=== PATIENT | female | born 1975 | race Caucasian/White ===

== ENCOUNTER 2016-06-03 16:44 | Emergency (ER) | payer MEDICAID ==
[~2016-06-03] VITALS: Ht 157.5 cm; Wt 90.9 kg
[~2016-06-03 16:44] MED LIST: ABILIFY 10MG TA10 MG PO; ABILIFY20 MG PO; BENADRYL25 M2 PO; BENADRYL50 MG PO; BENZTROPINE1 MG PO; BUSPIRONE HCL7.5 MG PO; CELEXA40 MG PO; CEPHALEXIN500 M1 PO; CHANTIX 1MG1 MG PO; CLARITIN 1010 MG/TAB PO; CLEOCIN HC150 MG/CAP PO; COGENTIN .0.5 MG/TAB PO; COLACE 100100 MG/CAP PO; DEPAKOTE ER 50500 MG PO; DESYREL 50MG50 MG PO; DESYREL DIVIDO150 M1 PO; DIFLUCAN150 MG PO; FETZIMA40 PO; FLEXERIL 1010 MG/TAB PO; GEODON40 MG PO; GEODON80 MG PO; HYDROXYZINE50 MG PO; INDERAL 10MG10 MG PO; KLONOPIN 0.5MG0.5 MG PO; KLONOPIN0.5 MG PO; LAMICTAL 100MG100 MG PO; LATUDA20 MG PO; LATUDA40 MG PO; LEVAQUIN 5500 MG/TA1 PO; LIPITOR 10MG10 MG PO; LORTAB 5/500 501 TAB PO; MACROBID 1100 MG/CAP PO; MEDROL 4MG DOSPA4 MG PO; MINIPRESS2 MG PO; MIRTAZAPINE7.5 MG PO; NICODERM C21 MG/PATC TOP; NORCO 325 MG-51 TAB PO; OMNICEF 300MG300 MG PO; PERCOCET 325 MG1 TA2 PO; PRAZOSIN PO; PREMARIN 0.60.625 M1 PO; PRIL40 PO; PRILOSEC 20MG20 MG PO; PRISTIQ100 MG PO; PRISTIQ50 M1 PO; PROAIR HFA0.09 MG/AC IH; PROMETHAZINE V473 M2 PO; PROZAC 20MG20 MG PO; PROZAC40 MG PO; PYRIDIUM200 M1 PO; SEROQUEL XR150 MG PO; SEROQUEL XR200 MG PO; SEROQUEL XR50 MG PO; SEROQUEL50 MG PO; TENORMIN 2525 MG/TAB PO; TRAZADONE HYDR100 MG PO; ULTRAM 50MG TAB50 MG PO; VALIUM 5MG T5 MG/TAB PO; VENTOLIN0.09 MG IH; VESICARE10 MG PO; VISTARIL 2525 MG/CAP PO; VISTARIL50 MG PO; XANAX 0.5MG0.5 MG PO; ZOCOR 20MG20 MG PO; ZOFRAN ODT4 MG PO; ZYRTEC ALLERGY10 MG PO
[2016-06-03 16:53] VITALS: BP 135/95; TEMP 97.2
[2016-06-03] MEDS ORDERED: ZOVIRAX800 MG PO (18:13)
[2016-06-03 18:20] VITALS: PULSE 74
== END 2016-06-03 18:20 | disposition home or self-care (01) ==
LOC: COL.ER 16:44
DX: B02.9 Zoster without complications (principal); I10 Essential (primary) hypertension

== ENCOUNTER 2016-07-14 20:55 | Emergency (ER) | payer MEDICAID ==
[~2016-07-14] VITALS: Ht 157.5 cm; Wt 90.9 kg
[~2016-07-14 20:55] MED LIST changes: +ZOVIRAX800 MG PO
[2016-07-14 21:19] VITALS: BP 139/84; PULSE 88; TEMP 98.3
== END 2016-07-14 22:38 | disposition left against medical advice (07) ==
LOC: COL.ER 20:55
DX: G89.29 Other chronic pain (principal); Z53.21 Procedure and treatment not carried out due to patient leaving prior to being seen by health care provider

== ENCOUNTER 2016-08-05 22:10 | Emergency (ER) | payer MEDICAID ==
[~2016-08-05] VITALS: Ht 157.5 cm; Wt 88.6 kg
[2016-08-05 22:12] VITALS: BP 121/81; PULSE 89; TEMP 98.1
[2016-08-05] MEDS ORDERED: LEXAPRO20 MG PO (22:16)
[2016-08-05] MEDS ORDERED: LATUDA60 MG (22:16)
[2016-08-05] MEDS ORDERED: NEURONTIN400 MG/CAP PO (22:16)
[2016-08-05] MEDS ORDERED: ATARAX50 MG PO (22:17)
== END 2016-08-05 23:40 | disposition home or self-care (01) ==
LOC: COL.ER 22:10
DX: S93.402A Sprain of unspecified ligament of left ankle, initial encounter (principal); W01.198A Fall on same level from slipping, tripping and stumbling with subsequent striking against other object, initial encounter; Y92.480 Sidewalk as the place of occurrence of the external cause

== ENCOUNTER 2016-09-17 07:49 | Emergency (ER) | payer MEDICAID ==
[~2016-09-17] VITALS: Ht 157.5 cm; Wt 90.9 kg
[~2016-09-17 07:49] MED LIST changes: +ATARAX50 MG PO; +LATUDA60 MG; +LEXAPRO20 MG PO; +NEURONTIN400 MG/CAP PO
[2016-09-17 07:56] VITALS: BP 116/82; PULSE 85; TEMP 98.5
[2016-09-17] MEDS ORDERED: NORCO 325 MG-51 TAB PO (08:54)
== END 2016-09-17 09:10 | disposition home or self-care (01) ==
LOC: COL.ER 07:49
DX: S96.912A Strain of unspecified muscle and tendon at ankle and foot level, left foot, initial encounter (principal); S39.012A Strain of muscle, fascia and tendon of lower back, initial encounter; S80.02XA Contusion of left knee, initial encounter; J45.909 Unspecified asthma, uncomplicated; I10 Essential (primary) hypertension; F31.9 Bipolar disorder, unspecified; F17.210 Nicotine dependence, cigarettes, uncomplicated; M41.9 Scoliosis, unspecified; M19.90 Unspecified osteoarthritis, unspecified site; F41.9 Anxiety disorder, unspecified; Z85.41 Personal history of malignant neoplasm of cervix uteri; Z90.710 Acquired absence of both cervix and uterus; Z90.89 Acquired absence of other organs; Z98.51 Tubal ligation status; Z98.890 Other specified postprocedural states; W10.9XXA Fall (on) (from) unspecified stairs and steps, initial encounter
CPT/HCPCS: J1885; J2360

== ENCOUNTER 2016-12-03 20:00 | Emergency (ER) | payer MEDICAID ==
[~2016-12-03] VITALS: Ht 157.5 cm; Wt 100.0 kg
[2016-12-03 20:03] VITALS: BP 117/70; TEMP 98.3
[2016-12-03] MEDS ORDERED: PRIL40 PO (20:08)
[2016-12-03] MEDS ORDERED: BENADRYL50 MG PO (20:08)
[2016-12-03] MEDS ORDERED: FLEXERIL 1010 MG/TAB PO (21:15)
[2016-12-03] MEDS ORDERED: NORCO 325 MG-51 TAB PO (21:15)
[2016-12-03 21:30] VITALS: PULSE 98
== END 2016-12-03 21:30 | disposition home or self-care (01) ==
LOC: COL.ER 20:00
DX: M54.5 Low back pain (principal); M25.551 Pain in right hip; F31.9 Bipolar disorder, unspecified; F17.210 Nicotine dependence, cigarettes, uncomplicated; Z90.710 Acquired absence of both cervix and uterus; Z90.89 Acquired absence of other organs; Z98.51 Tubal ligation status; Z98.890 Other specified postprocedural states
CPT/HCPCS: J1885; J2360

== ENCOUNTER 2016-12-08 18:08 | Emergency (ER) | payer MEDICAID ==
[~2016-12-08] VITALS: Ht 157.5 cm; Wt 100.0 kg
[~2016-12-08 18:08] MED LIST changes: -LATUDA60 MG; +LATUDA80 MG PO
[2016-12-08 18:12] VITALS: BP 135/77; TEMP 98.2
[2016-12-08] MEDS ORDERED: KLONOPIN 1MG1 MG PO (18:53)
[2016-12-08 18:59] VITALS: PULSE 107
== END 2016-12-08 18:59 | disposition home or self-care (01) ==
LOC: COL.ER 18:08
DX: M76.72 Peroneal tendinitis, left leg (principal); F17.210 Nicotine dependence, cigarettes, uncomplicated

== ENCOUNTER 2016-12-10 21:49 | Emergency (ER) | payer OTHER ==
[~2016-12-10 21:49] MED LIST changes: +KLONOPIN 1MG1 MG PO
[2016-12-10 22:57] LABS: BASO # 0.1 (0.0-0.2); BASO % 0.5 % (0.0-2.0); EOS # 0.3 (0.0-0.7); EOS % 3.4 % (0-4.0); GRAN # 4.7 (1.4-6.5); GRAN % 49.2 % (42.2-75.2); HEMATOCRIT 39.1 % (37.0-47.0); HEMOGLOBIN 13.1 g/dl (12.5-16.0); LYMPH # 3.8 (1.2-3.4); LYMPH % 39.3 % (20.0-51.0); MEAN CELL VOLUME 93 fl (80.0-100.0); MEAN CORPUSCULAR HEMOGLOBIN 31 pg (27.0-31.0); MEAN CORPUSCULAR HGB CONC 34 g/dl (33.0-37.0); MEAN PLATELET VOLUME 9.7 fl (7.4-10.4); MONO # 0.7 (0.1-0.6); MONO % 6.9 % (1.7-9.3); PLATELET COUNT 281 K/mm3 (130-400); RED BLOOD COUNT 4.21 M/mm3 (4.10-5.30); REDCELL DISTRIBUTION WIDTH-CV 13.2 % (11.5-14.5); WHITE BLOOD COUNT 9.6 K/mm3 (4.8-10.8)
[2016-12-10 23:19] LABS: ADJUSTED CALCIUM 8.6 mg/dL (8.4-10.2); BILIRUBIN,TOTAL 0.3 mg/dL (0.0-1.0); CALCIUM 8.6 mg/dL (8.4-10.2); CREATININE, serum 0.74 mg/dL (0.52-1.25); POTASSIUM 3.8 mmol/L (3.4-5.0); TOTAL PROTEIN 7.3 gm/dL (6.4-8.2)
[2016-12-10] MEDS ORDERED: FLEXERIL 1010 MG/TAB PO (23:43)
[2016-12-10] MEDS ORDERED: NORCO 325 MG-51 TAB PO (23:43)
[2016-12-11 00:10] VITALS: BP 109/73; PULSE 88
== END 2016-12-11 00:09 | disposition home or self-care (01) ==
LOC: COL.ER 21:49
PROVIDERS: Emergency Medicine
DX: S19.9XXA Unspecified injury of neck, initial encounter (principal); S33.9XXA Sprain of unspecified parts of lumbar spine and pelvis, initial encounter; S13.9XXA Sprain of joints and ligaments of unspecified parts of neck, initial encounter; S70.311A Abrasion, right thigh, initial encounter; F41.9 Anxiety disorder, unspecified; I10 Essential (primary) hypertension; V49.59XA Passenger injured in collision with other motor vehicles in traffic accident, initial encounter
CPT/HCPCS: J2060; J7030; Q9967

== ENCOUNTER 2017-01-07 23:56 | Emergency (ER) | payer MEDICAID ==
[~2017-01-07] VITALS: Ht 157.5 cm; Wt 95.5 kg
[2017-01-07 23:58] VITALS: BP 141/89; PULSE 100; TEMP 97.8
[2017-01-08] MEDS ORDERED: CYMBALTA 30MG30 MG PO (00:05)
== END 2017-01-08 00:40 | disposition home or self-care (01) ==
LOC: COL.ER 23:56
DX: M54.5 Low back pain (principal); R51 Headache; F32.9 Major depressive disorder, single episode, unspecified; Z90.89 Acquired absence of other organs; Z90.710 Acquired absence of both cervix and uterus; F17.210 Nicotine dependence, cigarettes, uncomplicated; V89.9XXA Person injured in unspecified vehicle accident, initial encounter
CPT/HCPCS: J1170; J1885

== ENCOUNTER 2017-02-12 00:23 | Emergency (ER) | payer MEDICAID ==
[~2017-02-12] VITALS: Ht 157.5 cm; Wt 90.9 kg
[~2017-02-12 00:23] MED LIST changes: +CYMBALTA 30MG30 MG PO
[2017-02-12 00:38] VITALS: BP 151/96; TEMP 98.6
[2017-02-12 03:16] VITALS: PULSE 89
== END 2017-02-12 03:17 | disposition home or self-care (01) ==
LOC: COL.ER 00:23
DX: R51 Headache (principal); K21.9 Gastro-esophageal reflux disease without esophagitis; F31.9 Bipolar disorder, unspecified; F17.210 Nicotine dependence, cigarettes, uncomplicated; Z85.41 Personal history of malignant neoplasm of cervix uteri
CPT/HCPCS: J1170; J1885; J2550

== ENCOUNTER 2017-02-17 22:52 | Emergency (ER) | payer MEDICAID ==
[~2017-02-17] VITALS: Ht 157.5 cm; Wt 90.9 kg
[2017-02-17 22:52] VITALS: BP 102/67; TEMP 98.3
[2017-02-17] MEDS ORDERED: NORCO 325 MG-51 TAB PO (23:36)
[2017-02-17] MEDS ORDERED: VOLTAREN 75 DR75 MG PO (23:36)
[2017-02-18 00:29] VITALS: PULSE 98
== END 2017-02-18 00:47 | disposition home or self-care (01) ==
LOC: COL.ER 22:52
DX: S93.401A Sprain of unspecified ligament of right ankle, initial encounter (principal); S63.501A Unspecified sprain of right wrist, initial encounter; S80.01XA Contusion of right knee, initial encounter; S70.01XA Contusion of right hip, initial encounter; S30.0XXA Contusion of lower back and pelvis, initial encounter; F17.210 Nicotine dependence, cigarettes, uncomplicated; W18.39XA Other fall on same level, initial encounter; Y93.K1 Activity, walking an animal; Y92.410 Unspecified street and highway as the place of occurrence of the external cause
CPT/HCPCS: J3010

== ENCOUNTER 2017-04-02 00:58 | Emergency (ER) | payer MEDICAID ==
[~2017-04-02] VITALS: Ht 157.5 cm; Wt 106.4 kg
[~2017-04-02 00:58] MED LIST changes: +VOLTAREN 75 DR75 MG PO
[2017-04-02 01:03] VITALS: BP 118/70; PULSE 106; TEMP 98.5
[2017-04-02] MEDS ORDERED: [UNRECOGNIZED DRUG - OTHER] (01:09)
[2017-04-02] MEDS ORDERED: FLEXERIL 1010 MG/TAB PO (01:42)
== END 2017-04-02 03:12 | disposition home or self-care (01) ==
LOC: COL.ER 00:58
DX: S33.5XXA Sprain of ligaments of lumbar spine, initial encounter (principal); W10.9XXA Fall (on) (from) unspecified stairs and steps, initial encounter

== ENCOUNTER 2017-04-15 09:45 | Emergency (ER) | payer MEDICAID ==
[~2017-04-15] VITALS: Ht 157.5 cm; Wt 104.5 kg
[2017-04-15 09:45] VITALS: TEMP 97.7
[~2017-04-15 09:45] MED LIST changes: +[UNRECOGNIZED DRUG - OTHER]
[2017-04-15] MEDS ORDERED: FLEXERIL 1010 MG/TAB PO (11:31)
[2017-04-15] MEDS ORDERED: LIDODERM 5% PATC1 EA TP (11:32)
[2017-04-15 12:11] VITALS: BP 126/88; PULSE 82
[2017-04-15] MEDS ORDERED: VOLTAREN GEL 1%1 TU TP (15:51)
== END 2017-04-15 12:12 | disposition home or self-care (01) ==
LOC: COL.ER 09:45
DX: S39.012A Strain of muscle, fascia and tendon of lower back, initial encounter (principal); W10.9XXA Fall (on) (from) unspecified stairs and steps, initial encounter; Y92.009 Unspecified place in unspecified non-institutional (private) residence as the place of occurrence of the external cause
CPT/HCPCS: J1170; J1885

== ENCOUNTER 2017-04-18 08:25 | Emergency (ER) | payer MEDICAID ==
[~2017-04-18] VITALS: Ht 157.5 cm; Wt 106.4 kg
[~2017-04-18 08:25] MED LIST changes: +LIDODERM 5% PATC1 EA TP; +VOLTAREN GEL 1%1 TU TP
[2017-04-18 08:30] VITALS: BP 117/84
[2017-04-18] MEDS ORDERED: ULTRAM 50MG TAB50 MG PO (09:00)
[2017-04-18 09:49] VITALS: PULSE 118; TEMP 96.8
== END 2017-04-18 09:44 | disposition home or self-care (01) ==
LOC: COL.ER 08:25
DX: M54.5 Low back pain (principal); W10.9XXA Fall (on) (from) unspecified stairs and steps, initial encounter; Y92.009 Unspecified place in unspecified non-institutional (private) residence as the place of occurrence of the external cause
CPT/HCPCS: J1885; J2360

== ENCOUNTER 2017-05-31 14:07 | Outpatient (RCR) | payer MEDICAID | END 2017-08-29 | disposition home or self-care (01) | LOC: MKS.ESL.PT | DX: M25.372 Other instability, left ankle (principal) | CPT/HCPCS: G8978-GP; G8979-GP ==

== ENCOUNTER 2017-06-29 20:43 | Emergency (ER) | payer MEDICAID ==
[~2017-06-29] VITALS: Ht 157.5 cm; Wt 104.5 kg
[2017-06-29 20:46] VITALS: BP 143/89; TEMP 98.3
[2017-06-29 23:19] VITALS: PULSE 80
== END 2017-06-29 23:20 | disposition home or self-care (01) ==
LOC: COL.ER 20:43
DX: G89.29 Other chronic pain (principal); M54.5 Low back pain; I10 Essential (primary) hypertension; F17.210 Nicotine dependence, cigarettes, uncomplicated; F31.9 Bipolar disorder, unspecified; J45.909 Unspecified asthma, uncomplicated; Z90.49 Acquired absence of other specified parts of digestive tract; Z90.89 Acquired absence of other organs; Z90.710 Acquired absence of both cervix and uterus; Z88.0 Allergy status to penicillin
CPT/HCPCS: J1885; J2270; J2360

== ENCOUNTER → 2017-07-28 | Outpatient (CLI) | payer MEDICAID | LOC: MHCPAIN 10:03 | DX: G89.29 Other chronic pain (principal); M47.817 Spondylosis without myelopathy or radiculopathy, lumbosacral region; M54.16 Radiculopathy, lumbar region; M53.3 Sacrococcygeal disorders, not elsewhere classified; M41.9 Scoliosis, unspecified | CPT/HCPCS: G0463 ==

== ENCOUNTER 2017-09-27 21:07 | Emergency (ER) | payer MEDICAID ==
[~2017-09-27] VITALS: Ht 157.5 cm; Wt 101.8 kg
[2017-09-27 21:11] VITALS: TEMP 97.8
[2017-09-27 21:19] VITALS: BP 133/89
[2017-09-27] MEDS ORDERED: LIORESAL 1010 MG/TAB (21:28)
[2017-09-27] MEDS ORDERED: MOBIC15 MG PO (21:28)
[2017-09-27] MEDS ORDERED: CYMBALTA 60MG60 MG PO (21:31)
[2017-09-27 22:05] VITALS: PULSE 101
== END 2017-09-27 22:05 | disposition home or self-care (01) ==
LOC: COL.ER 21:07
DX: M54.9 Dorsalgia, unspecified (principal); G89.29 Other chronic pain; I10 Essential (primary) hypertension; F31.9 Bipolar disorder, unspecified; F41.9 Anxiety disorder, unspecified; M41.9 Scoliosis, unspecified; Z90.49 Acquired absence of other specified parts of digestive tract; Z90.710 Acquired absence of both cervix and uterus; X50.0XXA Overexertion from strenuous movement or load, initial encounter
CPT/HCPCS: J1885; J2360

== ENCOUNTER 2017-10-05 21:21 | Emergency (ER) | payer MEDICAID ==
[~2017-10-05] VITALS: Ht 157.5 cm; Wt 101.8 kg
[~2017-10-05 21:21] MED LIST changes: +CYMBALTA 60MG60 MG PO; +LIORESAL 1010 MG/TAB PO; +MOBIC15 MG PO
[2017-10-05 21:24] VITALS: BP 115/71; TEMP 97.6
[2017-10-05] MEDS ORDERED: LIDODERM 5% PATC1 EA TP (22:04)
[2017-10-05] MEDS ORDERED: PREDNISONE20 MG PO (22:04)
[2017-10-05] MEDS ORDERED: NEURONTIN400 MG/CAP PO (22:19)
[2017-10-05] MEDS ORDERED: NEURONTIN800 MG/TAB PO (22:19)
[2017-10-05 23:19] VITALS: PULSE 98
== END 2017-10-05 23:20 | disposition home or self-care (01) ==
LOC: COL.ER 21:21
DX: M54.5 Low back pain (principal); G89.29 Other chronic pain; Z79.891 Long term (current) use of opiate analgesic
CPT/HCPCS: J2930

== ENCOUNTER 2017-10-09 04:23 | Emergency (ER) | payer MEDICAID ==
[~2017-10-09] VITALS: Ht 157.5 cm; Wt 101.8 kg
[~2017-10-09 04:23] MED LIST changes: +NEURONTIN800 MG/TAB PO; +PREDNISONE20 MG PO
[2017-10-09 04:24] VITALS: TEMP 97.5
[2017-10-09 05:36] LABS: COLLECTION METHOD CLEAN CATCH
[2017-10-09 05:45] LABS: MUCOUS Present /lpf; PH 6 (5-8); SQUAMOUS EPITHELIAL 0-2 /hpf; URINE APPEARANCE Clear; URINE BACTERIA Occasional /hpf; URINE BILIRUBIN Negative (NEGATIVE); URINE BLOOD Negative (NEGATIVE); URINE COLOR Yellow; URINE GLUCOSE Negative (NEGATIVE); URINE KETONE Negative (NEGATIVE); URINE LEUKOCYTE ESTERASE Negative (NEGATIVE); URINE NITRATE Negative (NEGATIVE); URINE PROTEIN(semi-quant) Negative (NEGATIVE); URINE RBC None Seen /hpf
[2017-10-09] MEDS ORDERED: LEXAPRO 10MG10 MG PO (05:50)
[2017-10-09 06:39] VITALS: BP 113/75; PULSE 100
== END 2017-10-09 06:59 | disposition home or self-care (01) ==
LOC: COL.ER 04:23
PROVIDERS: Emergency Medicine
DX: G89.29 Other chronic pain (principal); M54.5 Low back pain; F31.9 Bipolar disorder, unspecified; Z90.710 Acquired absence of both cervix and uterus; Z90.89 Acquired absence of other organs

== ENCOUNTER 2017-10-17 01:58 | Emergency (ER) | payer MEDICAID ==
[~2017-10-17] VITALS: Ht 157.5 cm; Wt 105.0 kg
[~2017-10-17 01:58] MED LIST changes: +LEXAPRO 10MG10 MG PO
[2017-10-17 02:00] VITALS: TEMP 97.9
[2017-10-17] MEDS ORDERED: DESYREL 100MG100 MG (02:19)
[2017-10-17 02:24] LABS: BASO % 0.4 % (0.0-2.0); EOS # 0.2 (0.0-0.7); EOS % 2.1 % (0-4.0); GRAN # 6.3 (1.4-6.5); GRAN % 60.8 % (42.2-75.2); HEMATOCRIT 44.6 % (37.0-47.0); HEMOGLOBIN 15.2 g/dl (12.5-16.0); LYMPH # 2.9 (1.2-3.4); LYMPH % 27.4 % (20.0-51.0); MEAN CELL VOLUME 89 fl (80.0-100.0); MEAN CORPUSCULAR HEMOGLOBIN 30 pg (27.0-31.0); MEAN CORPUSCULAR HGB CONC 34 g/dl (33.0-37.0); MEAN PLATELET VOLUME 9.5 fl (7.4-10.4); MONO # 0.9 (0.1-0.6); MONO % 8.7 % (1.7-9.3); PLATELET COUNT 264 K/mm3 (130-400); RED BLOOD COUNT 5.01 M/mm3 (4.10-5.30); REDCELL DISTRIBUTION WIDTH-CV 13.3 % (11.5-14.5)
[2017-10-17 02:35] LABS: ALBUMIN 4.3 gm/dL (3.5-5.0); BILIRUBIN,TOTAL 0.4 mg/dL (0.0-1.0); CALCIUM 9.4 mg/dL (8.4-10.2); CREATININE, serum 0.82 mg/dL (0.52-1.25); TOTAL PROTEIN 7.9 gm/dL (6.4-8.2)
[2017-10-17] MEDS ORDERED: ZOFRAN ODT4 MG PO (03:06)
[2017-10-17 03:10] VITALS: BP 121/99; PULSE 101
== END 2017-10-17 03:12 | disposition home or self-care (01) ==
LOC: COL.ER 01:58
PROVIDERS: Physician Assistant
DX: F41.9 Anxiety disorder, unspecified (principal); R06.02 Shortness of breath; R09.89 Other specified symptoms and signs involving the circulatory and respiratory systems; F32.9 Major depressive disorder, single episode, unspecified; F17.210 Nicotine dependence, cigarettes, uncomplicated; R11.0 Nausea

== ENCOUNTER 2017-10-18 12:45 | Outpatient (RCR) | payer MEDICAID ==
[~2017-10-18 12:45] MED LIST changes: +DESYREL 100MG100 MG
[2017-10-27] MEDS ORDERED: KLONOPIN 1MG1 MG PO (00:45)
[2017-10-27] MEDS ORDERED: VOLTAREN GEL 1%1 TU TP (00:46)
[2017-10-27] MEDS ORDERED: VOLTAREN 75 DR75 MG PO (00:49)
== END 2017-11-21 | disposition home or self-care (01) ==
LOC: WSPT
DX: M54.16 Radiculopathy, lumbar region (principal); M53.3 Sacrococcygeal disorders, not elsewhere classified; M41.9 Scoliosis, unspecified; M47.817 Spondylosis without myelopathy or radiculopathy, lumbosacral region; G89.29 Other chronic pain
CPT/HCPCS: G0283-GP

== ENCOUNTER → 2017-10-23 | Outpatient (CLI) | payer MEDICAID | LOC: MHCPAIN 10:46 | DX: G89.29 Other chronic pain (principal); M47.817 Spondylosis without myelopathy or radiculopathy, lumbosacral region; M54.16 Radiculopathy, lumbar region; M53.3 Sacrococcygeal disorders, not elsewhere classified; M41.9 Scoliosis, unspecified | CPT/HCPCS: G0463 ==

== ENCOUNTER → 2017-10-26 | Outpatient (CLI) | payer MEDICAID | LOC: MHCPAIN 07:28 | DX: M47.817 Spondylosis without myelopathy or radiculopathy, lumbosacral region (principal); M54.16 Radiculopathy, lumbar region | CPT/HCPCS: J1100; J2250; J3010; Q9967 ==

== ENCOUNTER 2017-10-27 00:23 | Emergency (ER) | payer MEDICAID ==
[~2017-10-27] VITALS: Ht 157.5 cm; Wt 105.0 kg
[2017-10-27 00:27] VITALS: TEMP 98.7
[2017-10-27] MEDS ORDERED: KLONOPIN 1MG1 MG PO (00:45)
[2017-10-27] MEDS ORDERED: VOLTAREN GEL 1%1 TU TP (00:46)
[2017-10-27] MEDS ORDERED: VOLTAREN 75 DR75 MG PO (00:49)
[2017-10-27 03:30] VITALS: BP 107/64; PULSE 61
== END 2017-10-27 03:30 | disposition home or self-care (01) ==
LOC: COL.ER 00:23
DX: G43.909 Migraine, unspecified, not intractable, without status migrainosus (principal); M54.16 Radiculopathy, lumbar region; M54.5 Low back pain; G89.29 Other chronic pain; E66.9 Obesity, unspecified; Z68.41 Body mass index [BMI] 40.0-44.9, adult
CPT/HCPCS: J0780; J1200; J1885; J7030

== ENCOUNTER → 2017-11-14 | Outpatient (CLI) | payer MEDICAID | LOC: MHCPAIN 07:57 | DX: G89.29 Other chronic pain (principal); M47.817 Spondylosis without myelopathy or radiculopathy, lumbosacral region; M54.16 Radiculopathy, lumbar region; M53.3 Sacrococcygeal disorders, not elsewhere classified; M41.9 Scoliosis, unspecified | CPT/HCPCS: G0463 ==

== ENCOUNTER 2017-12-06 20:41 | Emergency (ER) | payer MEDICAID ==
[~2017-12-06] VITALS: Ht 157.5 cm; Wt 105.5 kg
[2017-12-06 20:43] VITALS: BP 136/90; TEMP 98.1
[2017-12-06 21:45] VITALS: PULSE 96
== END 2017-12-06 21:48 | disposition home or self-care (01) ==
LOC: COL.ER 20:41
DX: S61.411A Laceration without foreign body of right hand, initial encounter (principal); I10 Essential (primary) hypertension; F31.9 Bipolar disorder, unspecified; F41.9 Anxiety disorder, unspecified; M54.9 Dorsalgia, unspecified; G89.29 Other chronic pain; F17.210 Nicotine dependence, cigarettes, uncomplicated; W25.XXXA Contact with sharp glass, initial encounter; Y93.G1 Activity, food preparation and clean up; Y92.009 Unspecified place in unspecified non-institutional (private) residence as the place of occurrence of the external cause

== ENCOUNTER → 2017-12-07 | Outpatient (CLI) | payer MEDICAID | LOC: MHCPAIN 10:07 | DX: M47.817 Spondylosis without myelopathy or radiculopathy, lumbosacral region (principal); M54.16 Radiculopathy, lumbar region | CPT/HCPCS: J1100; J2250; J3010; Q9967 ==

== ENCOUNTER 2018-02-04 03:02 | Emergency (ER) | payer MEDICAID ==
[~2018-02-04] VITALS: Ht 157.5 cm; Wt 100.0 kg
[2018-02-04 03:07] VITALS: BP 125/85; TEMP 97.1
[2018-02-04] MEDS ORDERED: ATIVAN 1MG T1 MG/TAB (03:32)
[2018-02-04] MEDS ORDERED: LATUDA20 MG (03:33)
[2018-02-04 04:42] VITALS: PULSE 95
== END 2018-02-04 04:44 | disposition home or self-care (01) ==
LOC: COL.ER 03:02
DX: S70.02XA Contusion of left hip, initial encounter (principal); W01.0XXA Fall on same level from slipping, tripping and stumbling without subsequent striking against object, initial encounter

== ENCOUNTER 2018-03-04 02:18 | Emergency (ER) | payer MEDICAID ==
[~2018-03-04] VITALS: Ht 157.5 cm; Wt 93.2 kg
[~2018-03-04 02:18] MED LIST changes: +ATIVAN 1MG T1 MG/TAB PO; +LATUDA20 MG
[2018-03-04 02:21] VITALS: TEMP 97.1
[2018-03-04 04:06] VITALS: BP 106/80
[2018-03-04 04:22] LABS: BASO % 0.4 % (0.0-2.0); EOS # 0.3 (0.0-0.7); EOS % 2.4 % (0-4.0); GRAN # 6.6 (1.4-6.5); GRAN % 64.9 % (42.2-75.2); HEMOGLOBIN 13.9 g/dl (12.5-16.0); LYMPH # 2.6 (1.2-3.4); LYMPH % 25.5 % (20.0-51.0); MEAN CELL VOLUME 97 fl (80.0-100.0); MEAN CORPUSCULAR HEMOGLOBIN 32 pg (27.0-31.0); MEAN CORPUSCULAR HGB CONC 33 g/dl (33.0-37.0); MEAN PLATELET VOLUME 9.8 fl (7.4-10.4); MONO # 0.7 (0.1-0.6); MONO % 6.5 % (1.7-9.3); PLATELET COUNT 254 K/mm3 (130-400); RED BLOOD COUNT 4.35 M/mm3 (4.10-5.30)
[2018-03-04 04:32] LABS: ACETAMINOPHEN < 10 ug/mL (10-30); ALANINE AMINOTRANSFERASE 17 U/L (9-52); ALBUMIN 3.9 gm/dL (3.5-5.0); ALKALINE PHOSPHATASE 97 U/L (50-136); ANION GAP 6 mmol/L (7-16); AST,SGOT 20 U/L (15-37); BILIRUBIN,TOTAL 0.2 mg/dL (0.0-1.0); BLOOD UREA NITROGEN 11 mg/dL (7-17); CALCIUM 9.3 mg/dL (8.4-10.2); CARBON DIOXIDE 29 mmol/L (22-30); CHLORIDE 106 mmol/L (98-107); CREATININE, serum 0.82 mg/dL (0.52-1.25); GLUCOSE 103 mg/dL (74-106); POTASSIUM 4.1 mmol/L (3.4-5.0); SALICYLATE < 1.0 mg/dL; SODIUM 141 mmol/L (137-145); TOTAL PROTEIN 7.1 gm/dL (6.4-8.2)
[2018-03-04] MEDS ORDERED: FLEXERIL 1010 MG/TAB PO (04:44)
[2018-03-04] MEDS ORDERED: PREDNISONE20 MG PO (04:44)
[2018-03-04 04:50] VITALS: PULSE 82
== END 2018-03-04 04:52 | disposition home or self-care (01) ==
LOC: COL.ER 02:18
PROVIDERS: Emergency Medicine
DX: M54.5 Low back pain (principal); F41.9 Anxiety disorder, unspecified; F43.10 Post-traumatic stress disorder, unspecified; F31.9 Bipolar disorder, unspecified; Z90.710 Acquired absence of both cervix and uterus; Z87.891 Personal history of nicotine dependence
CPT/HCPCS: J1100; J1630; J1885; J2270

== ENCOUNTER 2018-03-13 23:34 | Emergency (ER) | payer MEDICAID ==
[~2018-03-13] VITALS: Ht 157.5 cm; Wt 93.2 kg
[2018-03-13 23:54] VITALS: BP 125/63; PULSE 125; TEMP 97.2
== END 2018-03-14 01:40 | disposition left against medical advice (07) ==
LOC: COL.ER 23:34
DX: M54.5 Low back pain (principal); M79.605 Pain in left leg

== ENCOUNTER 2018-03-31 12:38 | Emergency (ER) | payer MEDICAID ==
[~2018-03-31] VITALS: Ht 157.5 cm; Wt 95.5 kg
[2018-03-31 12:43] VITALS: TEMP 99.2
[2018-03-31 13:05] LABS: BASO % 0.3 % (0.0-2.0); EOS # 0.2 (0.0-0.7); EOS % 1.6 % (0-4.0); GRAN # 6.1 (1.4-6.5); GRAN % 65.4 % (42.2-75.2); HEMATOCRIT 41.1 % (37.0-47.0); HEMOGLOBIN 14.2 g/dl (12.5-16.0); LYMPH # 2.4 (1.2-3.4); LYMPH % 25.4 % (20.0-51.0); MEAN CELL VOLUME 93 fl (80.0-100.0); MEAN CORPUSCULAR HEMOGLOBIN 32 pg (27.0-31.0); MEAN CORPUSCULAR HGB CONC 35 g/dl (33.0-37.0); MEAN PLATELET VOLUME 9.8 fl (7.4-10.4); MONO # 0.6 (0.1-0.6); MONO % 6.8 % (1.7-9.3); PLATELET COUNT 307 K/mm3 (130-400); REDCELL DISTRIBUTION WIDTH-CV 13.6 % (11.5-14.5)
[2018-03-31 13:19] LABS: ALBUMIN 3.8 gm/dL (3.5-5.0); BILIRUBIN,TOTAL 0.4 mg/dL (0.0-1.0); CALCIUM 8.9 mg/dL (8.4-10.2); CREATININE, serum 0.71 mg/dL (0.52-1.25); TOTAL PROTEIN 7.2 gm/dL (6.4-8.2)
[2018-03-31 13:21] LABS: POTASSIUM 2.5 mmol/L (3.4-5.0)
[2018-03-31] MEDS ORDERED: PREDNISONE20 MG PO (14:55)
[2018-03-31] MEDS ORDERED: DOXYCYCLINE 10100 MG PO (14:55)
[2018-03-31] MEDS ORDERED: TOPROL XL 25MG25 MG PO (15:10)
[2018-03-31] MEDS ORDERED: NIGHT TIME SLEE25 MG PO (15:14)
[2018-03-31] MEDS ORDERED: MINIPRESS 1M1 MG/CAP PO (15:15)
[2018-03-31] MEDS ORDERED: CYMBALTA 30MG30 MG PO (15:16)
[2018-03-31 16:47] LABS: ANION GAP 5 mmol/L (7-16); BLOOD UREA NITROGEN 3 mg/dL (7-17); CALCIUM 8.5 mg/dL (8.4-10.2); CARBON DIOXIDE 31 mmol/L (22-30); CHLORIDE 106 mmol/L (98-107); CREATININE, serum 0.69 mg/dL (0.52-1.25); GLUCOSE 89 mg/dL (74-106); POTASSIUM 3.2 mmol/L (3.4-5.0); SODIUM 142 mmol/L (137-145)
[2018-03-31 16:59] LABS: TROPONIN-I 3 HR POST INITIAL < 0.012 ng/mL (0.000-0.034)
[2018-03-31 17:58] VITALS: BP 114/69; PULSE 80
== END 2018-03-31 18:01 | disposition home or self-care (01) ==
LOC: COL.ER 12:38
PROVIDERS: Emergency Medicine
DX: J20.9 Acute bronchitis, unspecified (principal); R11.2 Nausea with vomiting, unspecified; E87.6 Hypokalemia; R94.31 Abnormal electrocardiogram [ECG] [EKG]; K21.9 Gastro-esophageal reflux disease without esophagitis; F31.9 Bipolar disorder, unspecified; F43.10 Post-traumatic stress disorder, unspecified; Z90.710 Acquired absence of both cervix and uterus; Z87.891 Personal history of nicotine dependence
CPT/HCPCS: J2405; J2550; J3480; J7030; J7040

== ENCOUNTER 2018-05-04 22:53 | Emergency (ER) | payer MEDICAID ==
[~2018-05-04] VITALS: Ht 157.5 cm; Wt 90.9 kg
[~2018-05-04 22:53] MED LIST changes: +DOXYCYCLINE 10100 MG PO; +MINIPRESS 1M1 MG/CAP PO; +NIGHT TIME SLEE25 MG PO; +TOPROL XL 25MG25 MG PO
[2018-05-04 23:03] VITALS: BP 159/99; PULSE 104; TEMP 98
[2018-05-05] MEDS ORDERED: ADVIL200 MG PO (01:15)
[2018-05-05] MEDS ORDERED: FLEXERIL 1010 MG/TAB PO (02:03)
== END 2018-05-05 02:29 | disposition home or self-care (01) ==
LOC: COL.ER 22:53
DX: G89.29 Other chronic pain (principal); M54.5 Low back pain; F17.210 Nicotine dependence, cigarettes, uncomplicated; F31.9 Bipolar disorder, unspecified; Z90.89 Acquired absence of other organs; Z98.51 Tubal ligation status
CPT/HCPCS: J1885

== ENCOUNTER 2018-05-16 12:44 | Emergency (ER) | payer MEDICAID ==
[~2018-05-16] VITALS: Ht 157.5 cm; Wt 90.9 kg
[~2018-05-16 12:44] MED LIST changes: +ADVIL200 MG PO
[2018-05-16 12:52] VITALS: TEMP 98.2
[2018-05-16] MEDS ORDERED: PREDNISONE20 MG PO (14:41)
[2018-05-16] MEDS ORDERED: FLEXERIL 1010 MG/TAB PO (14:41)
[2018-05-16 15:00] VITALS: BP 135/95; PULSE 104
== END 2018-05-16 15:02 | disposition home or self-care (01) ==
LOC: COL.ER 12:44
DX: M54.5 Low back pain (principal); G89.29 Other chronic pain; Z79.1 Long term (current) use of non-steroidal anti-inflammatories (NSAID)
CPT/HCPCS: J1885; J2060

== ENCOUNTER → 2018-06-04 | Outpatient (CLI) | payer MEDICAID | LOC: MHCPAIN 09:59 | DX: G89.29 Other chronic pain (principal); M47.817 Spondylosis without myelopathy or radiculopathy, lumbosacral region; M54.16 Radiculopathy, lumbar region; M53.3 Sacrococcygeal disorders, not elsewhere classified | CPT/HCPCS: G0463 ==

== ENCOUNTER → 2018-10-09 | Outpatient (CLI) | payer MEDICAID | LOC: COL.PUL 12:21 | DX: R05 Cough (principal); R94.2 Abnormal results of pulmonary function studies ==

== ENCOUNTER 2018-11-10 19:42 | Emergency (ER) | payer MEDICAID ==
[2018-11-10] MEDS ORDERED: DESYREL 100MG100 MG PO (19:53)
[2018-11-10] MEDS ORDERED: SINGULAIR 110 MG/TAB PO (19:53)
[2018-11-10] MEDS ORDERED: ULTRAM 50MG TAB50 MG PO (19:53)
[2018-11-10] MEDS ORDERED: LATUDA40 MG PO (19:53)
[2018-11-10] MEDS ORDERED: PRILOSEC 20MG20 MG PO (19:54)
[2018-11-10] MEDS ORDERED: ATIVAN2 MG PO (19:54)
[2018-11-10] MEDS ORDERED: MINIPRESS2 MG PO (19:54)
[2018-11-10] MEDS ORDERED: PROVENTIL0.09 MG/A1 IH (19:55)
[2018-11-10 20:21] LABS: COLLECTION METHOD CLEAN CATCH
[2018-11-10 20:34] LABS: PH 6 (5-8); SQUAMOUS EPITHELIAL None Seen /hpf; URINE APPEARANCE Clear; URINE BACTERIA Rare /hpf; URINE BILIRUBIN Negative (NEGATIVE); URINE BLOOD 1+ (NEGATIVE); URINE COLOR Straw; URINE GLUCOSE Negative (NEGATIVE); URINE KETONE Negative (NEGATIVE); URINE LEUKOCYTE ESTERASE Negative (NEGATIVE); URINE NITRATE Negative (NEGATIVE); URINE PROTEIN(semi-quant) Negative (NEGATIVE); URINE RBC 0-2 /hpf; URINE UROBILINOGEN Negative (NEGATIVE)
[2018-11-10 20:53] LABS: BASO % 0.3 % (0.0-2.0); EOS # 0.1 (0.0-0.7); EOS % 0.9 % (0-4.0); GRAN # 5.7 (1.4-6.5); HEMATOCRIT 40.9 % (37.0-47.0); HEMOGLOBIN 14.4 g/dl (12.5-16.0); LYMPH # 2.8 (1.2-3.4); LYMPH % 30.8 % (20.0-51.0); MEAN CELL VOLUME 91 fl (80.0-100.0); MEAN CORPUSCULAR HEMOGLOBIN 32 pg (27.0-31.0); MEAN CORPUSCULAR HGB CONC 35 g/dl (33.0-37.0); MEAN PLATELET VOLUME 9.5 fl (7.4-10.4); MONO # 0.5 (0.1-0.6); MONO % 5.8 % (1.7-9.3); PLATELET COUNT 260 K/mm3 (130-400); RED BLOOD COUNT 4.52 M/mm3 (4.10-5.30); REDCELL DISTRIBUTION WIDTH-CV 13.2 % (11.5-14.5)
[2018-11-10 21:01] LABS: TRICYCLIC ANTIDEPRESS URINE NEGATIVE
[2018-11-10 21:09] LABS: ALANINE AMINOTRANSFERASE < 6 U/L (9-52); ALBUMIN 4.3 gm/dL (3.5-5.0); ALKALINE PHOSPHATASE 93 U/L (50-136); ANION GAP 13 mmol/L (7-16); AST,SGOT 17 U/L (15-37); BILIRUBIN,TOTAL 0.2 mg/dL (0.0-1.0); BLOOD UREA NITROGEN 7 mg/dL (7-17); CALCIUM 9.4 mg/dL (8.4-10.2); CARBON DIOXIDE 27 mmol/L (22-30); CHLORIDE 102 mmol/L (98-107); CREATININE, serum 0.67 (0.52-1.25); GLUCOSE 134 mg/dL (74-106); SODIUM 142 mmol/L (137-145); TOTAL PROTEIN 7.4 gm/dL (6.4-8.2)
[2018-11-10 21:20] LABS: ACETAMINOPHEN < 10 ug/mL (10-30); ALCOHOL(ethanol),MEDICAL < 10 mg/dL; POTASSIUM 2.7 mmol/L (3.4-5.0); SALICYLATE < 1.0 mg/dL
[2018-11-10 21:38] LABS: TSH w REFLEX 0.831 uIU/mL (0.465-4.680)
[2018-11-10 22:07] LABS: CALCIUM 9.3 mg/dL (8.4-10.2); CREATININE, serum 0.71 (0.52-1.25)
[2018-11-10 22:10] LABS: POTASSIUM 2.9 mmol/L (3.4-5.0)
[2018-11-11 08:04] LABS: CALCIUM 9.1 mg/dL (8.4-10.2); CREATININE, serum 0.7 (0.52-1.25); POTASSIUM 3.3 mmol/L (3.4-5.0)
[2018-11-11 11:30] VITALS: BP 131/69; TEMP 98.3
[2018-11-11] MEDS ORDERED: K-DUR 10 MEQ T10 MEQ PO (16:49)
[2018-11-11 16:52] VITALS: PULSE 82
== END 2018-11-11 17:35 | disposition home or self-care (01) ==
LOC: COL.ER 19:42
PROVIDERS: Emergency Medicine; Nurse Practitioner
DX: F32.9 Major depressive disorder, single episode, unspecified (principal); R45.851 Suicidal ideations; E87.6 Hypokalemia; F17.210 Nicotine dependence, cigarettes, uncomplicated; F12.90 Cannabis use, unspecified, uncomplicated

== ENCOUNTER 2018-11-24 14:53 | Emergency (ER) | payer MEDICAID ==
[~2018-11-24] VITALS: Ht 157.5 cm; Wt 95.0 kg
[~2018-11-24 14:53] MED LIST changes: +ATIVAN2 MG PO; +DESYREL 100MG100 MG PO; +K-DUR 10 MEQ T10 MEQ PO; +PROVENTIL0.09 MG/A1 IH; +SINGULAIR 110 MG/TAB PO
[2018-11-24 16:08] LABS: BASO % 0.4 % (0.0-2.0); EOS # 0.1 (0.0-0.7); EOS % 1.3 % (0-4.0); GRAN # 6.6 (1.4-6.5); GRAN % 65.4 % (42.2-75.2); HEMATOCRIT 41.7 % (37.0-47.0); HEMOGLOBIN 14.2 g/dl (12.5-16.0); LYMPH # 2.7 (1.2-3.4); LYMPH % 26.2 % (20.0-51.0); MEAN CELL VOLUME 93 fl (80.0-100.0); MEAN CORPUSCULAR HEMOGLOBIN 32 pg (27.0-31.0); MEAN CORPUSCULAR HGB CONC 34 g/dl (33.0-37.0); MEAN PLATELET VOLUME 9.4 fl (7.4-10.4); MONO # 0.6 (0.1-0.6); MONO % 6.3 % (1.7-9.3); PLATELET COUNT 283 K/mm3 (130-400); RED BLOOD COUNT 4.51 M/mm3 (4.10-5.30); REDCELL DISTRIBUTION WIDTH-CV 13.3 % (11.5-14.5)
[2018-11-24 16:11] LABS: COLLECTION METHOD CLEAN CATCH
[2018-11-24 16:18] LABS: MUCOUS Present /lpf; PH 5 (5-8); URINE APPEARANCE Cloudy; URINE BACTERIA None Seen /hpf; URINE BILIRUBIN Positive (NEGATIVE); URINE BLOOD 2+ (NEGATIVE); URINE COLOR Amber; URINE GLUCOSE Negative (NEGATIVE); URINE KETONE Trace (NEGATIVE); URINE LEUKOCYTE ESTERASE 3+ (NEGATIVE); URINE NITRATE Negative (NEGATIVE); URINE PROTEIN(semi-quant) 2+ (NEGATIVE); URINE RBC >50 /hpf; URINE UROBILINOGEN >=4.0 mg/dL (NEGATIVE)
[2018-11-24 16:19] LABS: ALANINE AMINOTRANSFERASE < 6 U/L (9-52); ALBUMIN 4.2 gm/dL (3.5-5.0); ALKALINE PHOSPHATASE 82 U/L (50-136); ANION GAP 11 mmol/L (7-16); AST,SGOT 15 U/L (15-37); BILIRUBIN,TOTAL 0.3 mg/dL (0.0-1.0); BLOOD UREA NITROGEN 14 mg/dL (7-17); CALCIUM 9.5 mg/dL (8.4-10.2); CARBON DIOXIDE 26 mmol/L (22-30); CHLORIDE 105 mmol/L (98-107); CREATININE, serum 0.75 (0.52-1.25); GLUCOSE 106 mg/dL (74-106); POTASSIUM 3.6 mmol/L (3.4-5.0); SODIUM 142 mmol/L (137-145)
[2018-11-24 16:27] LABS: ACETAMINOPHEN < 10 ug/mL (10-30); ALCOHOL(ethanol),MEDICAL < 10 mg/dL
[2018-11-24 16:27] LABS: TRICYCLIC ANTIDEPRESS URINE NEGATIVE
[2018-11-24] MEDS ORDERED: VALIUM 5MG T5 MG/TAB PO (16:38)
[2018-11-24] MEDS ORDERED: REMERON 15M15 MG/TA1 PO (16:39)
[2018-11-24] MEDS ORDERED: REXULTI1 MG (16:40)
[2018-11-25 14:15] VITALS: BP 141/98; PULSE 79; TEMP 97.8
== END 2018-11-25 14:15 ==
LOC: COL.ER 14:53
PROVIDERS: Emergency Medicine
DX: F32.9 Major depressive disorder, single episode, unspecified (principal); N39.0 Urinary tract infection, site not specified; R45.851 Suicidal ideations; F41.9 Anxiety disorder, unspecified; F12.90 Cannabis use, unspecified, uncomplicated; F17.210 Nicotine dependence, cigarettes, uncomplicated; Z90.710 Acquired absence of both cervix and uterus; Z90.49 Acquired absence of other specified parts of digestive tract; Z98.51 Tubal ligation status

== ENCOUNTER 2019-07-11 23:09 | Emergency (ER) | payer MEDICAID ==
[~2019-07-11] VITALS: Ht 157.5 cm; Wt 100.0 kg
[~2019-07-11 23:09] MED LIST changes: +REMERON 15M15 MG/TA1 PO; +REXULTI1 MG
[2019-07-11 23:14] VITALS: TEMP 97.8
[2019-07-11 23:43] LABS: BASO # 0.1 (0.0-0.2); BASO % 0.6 % (0.0-2.0); EOS # 0.1 (0.0-0.7); GRAN # 4.9 (1.4-6.5); GRAN % 50.4 % (42.2-75.2); HEMATOCRIT 41.8 % (37.0-47.0); HEMOGLOBIN 14.2 g/dl (12.5-16.0); LYMPH % 40.7 % (20.0-51.0); MEAN CELL VOLUME 93 fl (80.0-100.0); MEAN CORPUSCULAR HEMOGLOBIN 32 pg (27.0-31.0); MEAN CORPUSCULAR HGB CONC 34 g/dl (33.0-37.0); MEAN PLATELET VOLUME 9.6 fl (7.4-10.4); MONO # 0.7 (0.1-0.6); MONO % 6.7 % (1.7-9.3); PLATELET COUNT 290 K/mm3 (130-400); RED BLOOD COUNT 4.51 M/mm3 (4.10-5.30); REDCELL DISTRIBUTION WIDTH-CV 12.7 % (11.5-14.5)
[2019-07-11 23:50] LABS: ALANINE AMINOTRANSFERASE 14 U/L (4-34); ALBUMIN 4.4 gm/dL (3.5-5.0); ALKALINE PHOSPHATASE 121 U/L (50-136); ANION GAP 8 mmol/L (7-16); AST,SGOT 31 U/L (15-37); BILIRUBIN,TOTAL 0.4 mg/dL (0.0-1.0); BLOOD UREA NITROGEN 14 mg/dL (7-17); CALCIUM 9.6 mg/dL (8.4-10.2); CARBON DIOXIDE 27 mmol/L (22-30); CHLORIDE 104 mmol/L (98-107); CREATININE, serum 0.75 (0.52-1.25); GLUCOSE 107 mg/dL (74-106); LIPASE 64 U/L (23-300); POTASSIUM 3.9 mmol/L (3.4-5.0); SODIUM 139 mmol/L (137-145)
[2019-07-12 00:11] LABS: TROPONIN-I < 0.012 ng/mL (0.000-0.035)
[2019-07-12 02:19] VITALS: BP 104/59; PULSE 88
== END 2019-07-12 02:32 | disposition home or self-care (01) ==
LOC: COL.ER 23:09
PROVIDERS: Emergency Medicine
DX: R07.89 Other chest pain (principal); R06.02 Shortness of breath; R20.2 Paresthesia of skin; F41.9 Anxiety disorder, unspecified; K21.9 Gastro-esophageal reflux disease without esophagitis; F31.9 Bipolar disorder, unspecified; F17.290 Nicotine dependence, other tobacco product, uncomplicated; E66.9 Obesity, unspecified; Z68.41 Body mass index [BMI] 40.0-44.9, adult; Z88.0 Allergy status to penicillin; Z88.8 Allergy status to other drugs, medicaments and biological substances; Z90.89 Acquired absence of other organs; Z90.710 Acquired absence of both cervix and uterus
CPT/HCPCS: J1200; J1630; J1885; J2270; J7030